=== PATIENT | female | born 1970 | race Caucasian/White ===

== ENCOUNTER → 2022-04-15 10:36 | Outpatient (BNVA) | payer MEDICAID, SELFPAY | PROVIDERS: Visit Provider Student in an Organized Health Care Education/Training Program | DX: G56.03 Carpal tunnel syndrome, bilateral upper limbs (principal); G56.23 Lesion of ulnar nerve, bilateral upper limbs | CPT/HCPCS: 73130; 99204 ==

== ENCOUNTER 2022-07-14 09:59 | Emergency (ER) | payer MEDICAID, SELFPAY ==
[2022-07-14] VITALS (7 sets, daily range): BP systolic 114–177; BP diastolic 76–106; PULSE 67–100; RESP 16–18; TEMP 36.4; O2SAT 96–100; BMI 32.4
--- NOTE | 2022-07-14 10:06 | XR_ITS ---
WS: [id number] Exam: XR chest 1V portable [id number] Date/Time of Exam: 07/14/2022 10:06 AM Reason For Exam: dyspnea/cough No priors. The lungs are fully expanded and clear. Normal cardiomediastinal silhouette. Elevated left diaphragm. No pleural effusion. Bony structures are intact. Levoscoliosis of the lower T-spine. XR/XR chest 1V portable [id number] IMPRESSION: 1. No acute cardiopulmonary finding. 2. Elevated left diaphragm.
--- NOTE | 2022-07-14 10:26 | ECG_ITS ---
[facility] Test Date: 2022-07-14 Pat Name: Angeline Sheridan Department: Room: Gender: Female Trestleman: : 1970 Requested By: Luan Oseguera Order Number: [id number] Joselyn MD: Navjot Arora M.D. Measurements Intervals Mckenna Rate: 94 P: 116 MI: 129 QRS: 121 QRSD: 80 T: 114 QT: 359 QTc: 450 Interpretive Statements SINUS RHYTHM LEFT POSTERIOR FASCICULAR BLOCK [QRS AXIS > 109, INFERIOR Q] No previous ECG available for comparison Electronically Signed On 07-14-2022 21:45:37 TRAVEL PROFESSIONAL by Navjot Arora M.D. [id number]
[2022-07-14 10:34] LABS: Basophils # 0.1 10^3/uL (0.0-0.1); Basophils % 0.6 %; Eosinophils # 0.2 10^3/uL (0.0-0.8); Eosinophils % 1.7 %; Hematocrit 44.7 % (37.0-47.0); Hemoglobin 14.9 g/dL (11.5-15.3); Lymphocytes # 3.8 10^3/uL (0.8-4.8); Lymphocytes % 39.8 %; Mean Corpuscular HGB Conc 33.3 g/dL (30.0-36.0); Mean Corpuscular Hemoglobin 30.3 pg (28.0-34.0); Mean Platelet Volume 11.6 fL (7.4-10.4); Monocytes # 0.6 10^3/uL (0.2-0.9); Monocytes % 6.3 %; Neutrophils # 4.88 10^3/uL (1.8-7.7); Neutrophils % 50.9 %; Nucleated Red Blood Cells % 0 %; Platelet Count 243 10^3/cmm (130-400); Red Blood Count 4.91 10^6/uL (4.1-5.3); Red Cell Distribution Width 13.1 % (12.1-15.1); White Blood Count 9.6 10^3/uL (4.0-10.0)
--- NOTE | 2022-07-14 10:38 | CT_ITS ---
WS: [id number] CT ABDOMEN PELVIS TECHNIQUE: Noncontrast CT of the abdomen and pelvis with coronal and sagittal reformatted images. CLINICAL INFORMATION: Abdominal pain COMPARISON: None. DLP: 981.[address] scans at [facility] use at least one of these dose optimization techniques: automated e xposure control; mA and/or kV adjustment per patient size (includes targeted exams where dose is matc hed to clinical indication); or iterative reconstruction. FINDINGS: Prior hysterectomy. No hydronephrosis in either kidney. No obstructing renal or ureteral calculi. A few sigmoid diverticuli. No evidence of acute diverticulitis. Normal terminal ileum. Appendix is no t definitely visualized. No evidence of acute appendicitis. Normal cecum. No inflammatory changes in the RIGHT lower quadrant. Lung bases are well aerated. Noncontrast liver and spleen are normal. Normal GE junction. Air-fluid l evels in the stomach. Adrenal glands are normal. Noncontrast pancreas appears normal. Fat-containing umbilical hernia. Normal caliber abdominal aorta. Aortic calcification. CT/CT abdomen pelvis wo con [id number] IMPRESSION: 1. No acute findings in the abdomen or pelvis. 2. Appendix is not definitely visualized. No evidence of acute appendicitis. N o inflammatory changes in the RIGHT lower quadrant. 3. A few sigmoid diverticuli. No evidence of acute diverticulitis. 4. No hydronephrosis in either kidney. No obstructing renal or ureteral calcul i. 5. Prior hysterectomy. 6. No other suspicious findings.
--- NOTE | 2022-07-14 10:39 | ED_ITS ---
HPI - Abdominal Pain General: Chief Complaint: Abdominal Pain Stated Complaint: Pain in stomach Time Seen by Provider: 07/14/22 10:05 Source: patient Mode of arrival: ambulatory History of Present Illness: 20-year-old female presents emergency room with right lower quadrant abdominal pain is been present for the last 3 weeks. She states it feels constant. She denies any dysuria urgency or frequency no hematuria hematochezia melena hematemesis cough cramps no fever sweats or chills bowel bladder function has been normal. She previously had a hysterectomy. MD elicited complaint: abdominal pain Onset (ago): week(s) (3) Pain Consistency: constant Location: RLQ Severity: mild Quality: stabbing Exacerbating factors: nothing Relieving factors: nothing Associated Symptoms: Denies anorexia, belching, bloating, change in bowel habits, change in stool character, chills, coffee ground emesis, constipation, GI cramping, diarrhea, dyspepsia, dysuria, excessive flatus, fever(s), heartburn, hematochezia, hematuria, hematemesis, fecal incontinence, loose stools, melena, nausea, poor appetite, syncope and vomiting Review of Systems Const: Denies: fever(s) or chills ENMT: Denies: throat pain, ear or mastoid pain, nasal discharge or nasal congestion Card: Denies: chest pain, palpitations, irregular heart rhythm, edema or syncope Resp: Denies: dyspnea, productive cough or non-productive cough GI: Reports: abdominal pain; Denies: nausea, vomiting, hematemesis, coffee ground emesis, heartburn, diarrhea, constipation, bloating, GI cramping, belching, excessive flatus, fecal incontinence, change in bowel habits, change in stool character, hematochezia or melena : Denies: dysuria, urinary frequency, urinary urgency or hematuria Musc: Denies: neck pain or back pain Skin/Breast: Denies: rash or pruritus PFSH ED PFSH: Medical History Carpal tunnel syndrome, bilateral Cubital tunnel syndrome, bilateral Social History Smoking and tobacco status: current every day smoker Physical Exam Const: COMMON NORMALS: no acute distress GENERAL APPEARANCE: cooperative and comfortable ORIENTATION/CONSCIOUSNESS: Yes awake, Yes oriented to person, Yes oriented to place and Yes oriented to time HENMT: COMMON NORMALS: normocephalic, atraumatic and hearing grossly normal bilaterally HEAD & SCALP: normocephalic and atraumatic Resp: COMMON NORMALS: normal respiratory effort, No retractions, No use of accessory muscles and clear to auscultation bilaterally AUSCULTATION: clear to auscultation bilaterally Cardio: COMMON NORMALS: regular rate, regular rhythm and No murmurs present (Cardio) RATE: regular rate RHYTHM: regular rhythm GI: COMMON NORMALS: No hepatosplenomegaly present AUSCULTATION: Yes n ormoactive bowel sounds PALPATION: Yes Tenderness to palpation present (GI) Details: RLQ, No Guarding due to palpation present (GI) and Yes No hepatosplenomegaly present Extremity: COMMON NORMALS: normal to inspection, capillary refill normal, no clubbing, cyanosis or edema, no calf tenderness and no pedal edema Neuro: SENSORIUM/ORIENTATION: Yes oriented to person, Yes oriented to place and Yes oriented to time Skin: COMMON NORMALS: no rashes or lesions noted GENERAL SKIN EXAM: no rashes or lesions noted Course Vital Signs: Vital signs: Vital Signs Temperature 97.5 F L 07/14/22 10:16 Pulse Rate 84 07/14/22 13:16 Respiratory Rate 16 07/14/22 13:16 Blood Pressure 116/76 07/14/22 12:30 Pulse Oximetry 100 07/14/22 13:16 Oxygen Delivery Me thod 07/14/22 12:11 MDM - Abdominal Pain Medical Decision Making Nonsurgical abdominal exam. No evidence of hernia CT is negative laboratory tests unremarkable reviewed with the patient. At this time there is no acute emergent condition present refer back to primary care for further evaluation. Would recommend that she start proton pump inhibitor for now. Medical Records I reviewed the patient's medical records. Lab Data I reviewed the patient's lab results. 07/14/22 10:24 07/14/22 10:24 Labs/Radiology: Radiology Impressions Chest X-Ray 07/14/22 10:06 IMPRESSION: 1. No acute cardiopulmonary finding. 2. Elevated left diaphragm. Abdomen/Pelvis CT 07/14/22 10:38 IMPRESSION: 1. No acute findings in the abdomen or pelvis. 2. Appendix is not definitely visualized. No evidence of acute appendicitis. No inflammatory changes in the RIGHT lower quadrant. 3. A few sigmoid diverticuli. No evidence of acute diverticulitis. 4. No hydronephrosis in either kidney. No obstructing renal or ureteral calculi. 5. Prior hysterectomy. 6. No other suspicious findings. Laboratory Results WBC 9.6 10^3/uL (4.0-10.0) 07/14/22 10:24 RBC 4.91 10^6/uL (4.1-5.3) 07/14/22 10:24 Hgb 14.9 g/dL (11.5-15.3) 07/14/22 10:24 Hct 44.7 % (37.0-47.0) 07/14/22 10:24 MCV 91.0 fl (81-99) 07/14/22 10:24 MCH 30.3 pg (28.0-34.0) 07/14/22 10:24 MCHC 33.3 g/dL (30.0-36.0) 07/14/22 10:24 RDW 13.1 % (12.1-15.1) 07/14/22 10:24 Plt Count 243 10^3/cmm (130-400) 07/14/22 10:24 MPV 11.6 fL (7.4-10.4) H 07/14/22 10:24 Neut % (Auto) 50.9 % 07/14/22 10:24 Lymph % (Auto) 39.8 % 07/14/22 10:24 [place] % (Auto) 6.3 % 07/14/22 10:24 Eos % (Auto) 1.7 % 07/14/22 10:24 Baso % (Auto) 0.6 % 07/14/22 10:24 Neut # (Auto) 4.88 10^3/uL (1.8-7.7) 07/14/22 10:24 Lymph # (Auto) 3.8 10^3/uL (0.8-4.8) 07/14/22 10:24 [place] # (Auto) 0.6 10^3/uL (0.2-0.9) 07/14/22 10:24 Eos # (Auto) 0.2 10^3/uL (0.0-0.8) 07/14/22 10:24 Baso # (Auto) 0.1 10^3/uL (0.0-0.1) 07/14/22 10:24 Nucleated RBC % (auto) 0 % 07/14/22 10:24 Nucleated RBCs # 0.0 /100WBC 07/14/22 10:24 Sodium 137 mmol/L (136-145) 07/14/22 10:24 Potassium 3.8 mmol/L (3.5-5.1) 07/14/22 10:24 Chloride 99 mmol/L (98-107) 07/14/22 10:24 Carbon Dioxide 25 mmol/L (22-29) 07/14/22 10:24 Anion Gap 16.8 (5-19) 07/14/22 10:24 BUN 10 mg/dL (6-20) 07/14/22 10:24 Creatinine 0.7 mg/dL (0.5-0.9) 07/14/22 10:24 GFR Calculation 88.2 mL/min (90-130) L 07/14/22 10:24 Glucose 118 mg/dL (65-115) H 07/14/22 10:24 Calculated Osmolality 284 mOsm/kg (285-295) L 07/14/22 10:24 Calcium 9.6 mg/dL (8.5-10.5) 07/14/22 10:24 Total Bilirubin 0.2 mg/dL (0.15-1.2) 07/14/22 10:24 AST 28 U/L (0-32) 07/14/22 10:24 ALT 26 U/L (0-33) 07/14/22 10:24 Alkaline Phosphatase 63 U/L (35-105) 07/14/22 10:24 Total Protein 7.9 g/dL (6.6-8.7) 07/14/22 10:24 Albumin 4.5 g/dL (3.5-5.2) 07/14/22 10:24 Globulin 3.4 g/dL (1.3-4.6) 07/14/22 10:24 Lipase 43 U/L (13-60) 07/14/22 10:24 Urine Color Straw (Yellow) 07/14/22 12:49 Urine Appearance Clear (CLEAR) 07/14/22 12:49 Urine pH 7 (5-7) 07/14/22 12:49 Ur Specific [place] 1.010 (1.005-1.030) 07/14/22 12:49 Urine Protein Neg (Negative) 07/14/22 12:49 Urine Glucose (UA) Norm (Normal) 07/14/22 12:49 Urine Ketones Negative (Negative) 07/14/22 12:49 Urine Blood Neg (Negative) 07/14/22 12:49 Urine Nitrate Negative (Negative) 07/14/22 12:49 Urine Bilirubin Neg (Negative) 07/14/22 12:49 Urine Urobilinogen Neg mg/dL (Negative) 07/14/22 12:49 Ur Leukocyte Esterase Negative (Negative) 07/14/22 12:49 Discharge Plan Discharge Patient Disposition: Home Clinical Impression: Abdominal pain Condition: Stable Prescriptions: No Action omega 1-hci-mpt-fish oil [Fish Oil] 1,000 mg (120 mg-180 mg) capsule 1 cap PO QAM aspirin [Adult Low Dose Aspirin] 81 mg tablet,delayed release (DR/EC) 81 mg PO QAM spironolactone 50 mg tablet 50 mg PO DAILY ipratropium-albuterol 0.5 mg-3 mg(2.5 mg base)/3 mL solution for nebulization 3 ml INHALATION PRN cetirizine 10 mg tablet 10 mg PO DAILY PRN (Reason: Allergy Symptoms) albuterol sulfate [Ventolin HFA] 90 mcg/actuation HFA aerosol inhaler 2 puff INHALATION Q6H PRN (Reason: Shortness Of Breath) fluticasone propionate 50 mcg/actuation spray,suspension 1 spray INTRANASAL BID PRN (Reason: Allergy Symptoms) Prilosec 20 mg Capsule,Delayed Release(Dr/Ec) 20 mg PO DAILY PRN (Reason: Heartburn) WesTab Plus 27 mg iron- 1 mg tablet 1 tab PO QAM Discharge Orders: Discharge ED (Routine); Ordered 07/14/22 Ordered By: Luan Mixon Referrals: Korina Youssef DO [Primary Care Provider] - Discharge Diet: Usual diet Discharge Activity: Increase activity as tolerated Patient Instructions: Abdominal Pain (ED), Opioid Safety, Pain Management Activity Restrictions/Additional Instructions: You are seen in the emergency room for abdominal pain. Your urine chemistries and blood counts were all normal. CT of your abdomen and pelvis did not show any significant abnormality. There was no sign on the CT of acute appendicitis. Recommend that you follow-up with your primary care provider for further evaluation. At this time there are no emergent conditions present on the evaluation done in the emergency room. Coding Level of Care Code ED Job Putter Up And Ticket Preparer for Precious Benitez Exam Detailed
[2022-07-14 10:58] LABS: Alanine Aminotransferase 26 U/L (0-33); Albumin Level 4.5 g/dL (3.5-5.2); Alkaline Phosphatase 63 U/L (35-105); Blood Urea Nitrogen 10 mg/dL (6-20); Calcium 9.6 mg/dL (8.5-10.5); Carbon Dioxide 25 mmol/L (22-29); Chloride 99 mmol/L (98-107); Globulin 3.4 g/dL (1.3-4.6); Glomerular Filtration Rate 88.2 mL/min (90-130); Glucose 118 mg/dL (65-115); Lipase 43 U/L (13-60); Osmolality Calculated 284 mOsm/kg (285-295); Sodium 137 mmol/L (136-145); Total Bilirubin 0.2 mg/dL (0.15-1.2); Total Protein 7.9 g/dL (6.6-8.7)
[2022-07-14 11:05] LABS: Anion Gap 16.8 (5-19); Aspartate Amino Transferase 28 U/L (0-32); Potassium 3.8 mmol/L (3.5-5.1)
--- NOTE | 2022-07-14 11:08 | PC.PHAR ---
pt states she takes care of her own medications-pt states she no longer uses her symbicort 160-4.5mcg inhaler filled on 06/08/22-pt states she has a rx for elidel 1% cream states she has never used-
[2022-07-14 12:58] LABS: Add Urine Microscopic? NO; Charge for UA Resulting for Rev
[2022-07-14 13:01] LABS: Bilirubin Urine Neg (Negative); Blood Urine Neg (Negative); Glucose Urine UA Norm (Normal); Ketones Urine Negative (Negative); Leukocyte Esterase Urine Negative (Negative); Nitrate Urine Negative (Negative); Protein Urine Neg (Negative); Urine Appearance Clear (CLEAR); Urine Color Straw (Yellow); Urobilinogen Urine Neg (Negative); pH Urine 7 (5-7)
== END 2022-07-14 13:18 | disposition home or self-care (01) ==
PROVIDERS: Emergency Provider Family Medicine; PCP Family Medicine
DX: R10.31 Right lower quadrant pain (principal); F17.210 Nicotine dependence, cigarettes, uncomplicated
CPT/HCPCS: 71045; 74176; 80053; 81003; 83690; 85025; 93005; 99285

== ENCOUNTER 2022-08-19 14:55 | Outpatient (CLI) | payer MEDICAID, SELFPAY ==
--- NOTE | 2022-08-19 15:10 | MM_ITS ---
WS: [id number] BILATERAL 3D TOMOSYNTHESIS DIGITAL SCREENING MAMMOGRAPHY WITH CAD CLINICAL INFORMATION: SCREENING HISTORY: Screening mammogram. No current complaints. COMPARISON: 2020 TECHNIQUE: Bilateral CC and MLO views. FINDINGS: History of bilateral breast reduction The breasts are composed of heterogeneous fibroglandular density tissue, which can limit the detectio n of small underlying mass lesions. No suspicious mass, asymmetry, calcifications, or architectural d istortion. No evidence of malignancy. Incidental punctate calcifications. MM/[id number] IMPRESSION: BI-RADS: 2-Benign FOLLOW UP: 1 Year Follow-up Recommend return to annual screening mammography.
== END 2022-08-19 14:56 | disposition home or self-care (01) ==
LOC: RAD 14:58
PROVIDERS: PCP Family Medicine; Visit Provider Family Medicine
DX: Z12.31 Encounter for screening mammogram for malignant neoplasm of breast (principal)
CPT/HCPCS: 77063; 77067

== ENCOUNTER 2023-12-27 13:03 | Outpatient (CLI) | payer MEDICAID, SELFPAY ==
--- NOTE | 2023-12-27 13:30 | USCV_ITS ---
Angeline Sheridan Age: 53 Gender: F : 1970 Exam Date: 12/27/2023 13:34 Ordering Phys: Tere Martin POLICY CHECKER POLICY CHECKER Technologist: CT Exam Location: [facility] Indication: htn BP: 114 / 77 HR: 72 Rhythm: Sinus Technical Quality: Adequate MEASUREMENTS (Male / Female) Normal Values 2D ECHO LVOT Diameter 2.0 cm LV Ejection Fraction MOD 4C 73.4 % LV Ejection Fraction MOD 2C 72.2 % LV Ejection Fraction 2C AL 72.3 % LA Diameter 2.8 cm RA Systolic Volume 4C AL 30.8 ml RA Systolic Volume 4C MOD 30.2 ml LA Sys Volume AL 36.6 cm cubed LA Sys Volume Index AL 18.0 cm cubed/m squared Aorta at Sinotubular Diameter 2.3 cm IVC Diameter 1.6 cm M-MODE LA Ao Ratio MM 2.0 AV Cusp Separation MM 1.8 cm DOPPLER AV Peak Velocity 151.0 cm/s LVOT Peak Velocity 135.0 cm/s AV Area Cont Eq vti 2.9 cm squared AV Area Cont Eq pk 2.8 cm squared MV Peak Velocity 108.0 cm/s MV Area PHT 3.3 cm squared Mitral E to A Ratio 1.0 TR Peak Velocity 104.0 cm/s TR Peak Gradient 4.3 mmHg TV Peak E Velocity 72.0 cm/s Right Atrial Pressure 3.0 mmHg Pulmonary Artery Systolic Pressu 7.3 mmHg PV Peak Velocity 119.0 cm/s FINDINGS Left Ventricle Left ventricle is normal size. LV systolic function is normal with EF of 55 to 60%. No regional wall motion abnormalities are seen. Grade 1 diastolic dysfunction. Right Ventricle Normal in size and function Right Atrium Normal in size Left Atrium Normal in size Mitral Valve Structurally normal mitral valve. Mild mitral regurgitation. Aortic Valve Aortic valve is thickened. No significant stenosis or regurgitation. Tricuspid Valve Insufficient TR jet to calculate RVSP. Pulmonic Valve Not well visualized Pericardium Normal Aorta Normal in size IVC Appears to be normal CONCLUSIONS LV systolic function is normal with EF 55 to 60%. Grade 1 diastolic dysfunction. Mild mitral regurgitation No comparison studies are available Navjot Arora MD (Electronically Signed) Final Date: 12 January 2024 08:38 S
== END 2023-12-27 13:04 | disposition home or self-care (01) ==
PROVIDERS: PCP Nurse Practitioner Family; Visit Provider Nurse Practitioner Family
DX: I10 Essential (primary) hypertension (principal); Z82.41 Family history of sudden cardiac death; I34.0 Nonrheumatic mitral (valve) insufficiency; Z79.899 Other long term (current) drug therapy
CPT/HCPCS: 80053; 80061; 82607; 83036; 84443; 85025; 93306

== ENCOUNTER 2024-01-03 13:02 | Outpatient (CLI) | payer MEDICAID, SELFPAY ==
--- NOTE | 2024-01-03 12:20 | MM_ITS ---
WS: [id number] BILATERAL 3D TOMOSYNTHESIS DIGITAL SCREENING MAMMOGRAPHY WITH CAD CLINICAL INFORMATION: Z12.39 - Encounter for other screening for malignant neop... HISTORY: Screening mammogram. No current complaints. COMPARISON: 2022 TECHNIQUE: Bilateral CC and MLO views. FINDINGS: The breasts are composed of heterogeneous fibroglandular density tissue, which can limit the detectio n of small underlying mass lesions. No suspicious mass, asymmetry, calcifications, or architectural d istortion. No evidence of malignancy. Incidental punctate and lucent centered calcifications. MM/[place] [facility] [place] [id number] IMPRESSION: BI-RADS: 2-Benign FOLLOW UP: 1 Year Follow-up Recommend return to annual screening mammography.
== END 2024-01-03 13:03 | disposition home or self-care (01) ==
LOC: MOBLMAM 13:09
PROVIDERS: PCP Nurse Practitioner Family; Visit Provider Nurse Practitioner Family
DX: Z12.31 Encounter for screening mammogram for malignant neoplasm of breast (principal); R92.323 Mammographic fibroglandular density, bilateral breasts; R92.1 Mammographic calcification found on diagnostic imaging of breast
CPT/HCPCS: 77063; 77067